=== PATIENT | male | born 1940 | race Caucasian/White ===

== ENCOUNTER 2020-12-31 16:09 | Outpatient (CLI) | payer OTHER ==
[~2020-12-31] VITALS: Ht 185.4 cm; Wt 79.4 kg
[~2020-12-31 16:09] MED LIST: succinylcholine 20mg/ml inj IV ONE
[2020-12-31] MEDS ORDERED: albuterol 2.5 MG/3 ML nebule NEB ONE (16:35)
== END 2020-12-31 23:59 | disposition home or self-care (01) ==
LOC: RT 16:09
PROVIDERS: ATTEND Orthopaedic Surgery
DX: R94.2 Abnormal results of pulmonary function studies (principal); J61 Pneumoconiosis due to asbestos and other mineral fibers
CPT/HCPCS: 94060; 94760; J0330

== ENCOUNTER 2022-10-15 10:07 | Outpatient (CLI) | payer OTHER ==
[~2022-10-15] VITALS: Ht 185.4 cm; Wt 80.7 kg
[2022-10-15] MEDS ORDERED: albuterol 2.5 MG/3 ML nebule NEB PRN (10:55)
== END 2022-10-15 23:59 | disposition home or self-care (01) ==
LOC: RT 10:07
PROVIDERS: ATTEND Chiropractor
DX: R94.2 Abnormal results of pulmonary function studies (principal); J61 Pneumoconiosis due to asbestos and other mineral fibers; J98.4 Other disorders of lung; Z87.891 Personal history of nicotine dependence; Z79.899 Other long term (current) drug therapy
CPT/HCPCS: 71046; 94060; 94760; J7030; J7070

== ENCOUNTER → 2024-02-06 | Outpatient (CLI) | payer OTHER | END | disposition home or self-care (01) | LOC: RAD 14:21 | PROVIDERS: ATTEND Chiropractor | DX: J61 Pneumoconiosis due to asbestos and other mineral fibers (principal) | CPT/HCPCS: 71046 ==